=== PATIENT | male | born 1945 | race Asian ===

== ENCOUNTER 2018-02-24 16:31 | Emergency (ER) | payer BC ==
--- NOTE | 2018-02-24 18:02 | ER Document Report ---
ED General - General Chief Complaint: Skin Sore(s) Stated Complaint: BLISTERS Time Seen by Provider: 02/24/18 18:01 Notes: Patient is a 72-year-old male that presents to the emergency department for chief complaint of bulla formation. History provided by the patient via professional hr receptionist for [employer]. According to the patient he reports that in January 05, he had eaten some fried rice, and then that evening had itching on his head and back and arms, when he woke up he had bulla formation on his arms, he went to an urgent care and they prescribed a medication, and it improved, he thinks it may have been steroids. He thought this was may be an allergic reaction. He again was feeling itching last night, woke up and noted that his legs were having blister formation as well and itching, so they decided come to the emergency department to have this evaluated. He has not had any lesions in his mouth, denies having any sore throat or mouth pain. Denies having any shortness of breath or difficulty breathing. Denies any nausea, vomiting or abdominal pain. Past Medical History: Denies chronic medical conditions Past Surgical History: Reviewed and not pertinent to presenting illness Social History: Denies smoking history, or alcohol or drug use. Family History: Reviewed and noncontributory for presenting illness Allergies: Reviewed, see documented allergy list. REVIEW OF SYSTEMS: Unless otherwise stated in this report the patient's positive and negative responses for review of systems for constitutional, eyes, ENT, cardiovascular, respiratory, gastrointestinal, neurological, genitourinary, musculoskeletal, and integumentary systems and related systems to the presenting problem are either as stated in the HPI or were not pertinent or were negative for the symptoms and/or complaints related to the presenting medical problem. PHYSICAL EXAMINATION: Vital signs reviewed, nursing noted reviewed. GENERAL: Elderly male and in no acute distress. HEAD: Atraumatic, normocephalic. EYES: Eyes appear normal, extraocular movements intact, sclera anicteric, conjunctiva are normal. ENT: nares patent, oropharynx clear without exudates. Moist mucous membranes. No oral lesions, on the palate, or the vehicle mucosa NECK: Normal range of motion, supple without lymphadenopathy LUNGS: Breath sounds clear to auscultation bilaterally and equal. No wheezes rales or rhonchi. HEART: Regular rate and rhythm without murmurs ABDOMEN: Soft, nontender, normoactive bowel sounds. No rebound, guarding, or rigidity. No masses appreciated. EXTREMITIES: Nontender, good range of motion, trace bilateral pitting edema. NEUROLOGICAL: No focal neurological deficits. Moves all extremities spontaneously Motor and sensory grossly intact on exam. PSYCH: Normal mood, normal affect. SKIN: Warm, Dry, normal turgor, patient noted to have tense bulla noted anteriorly over both lower extremities, few are ruptured, also noted are some tense bulla in the upper extremities. Negative Nikolsky sign TRAVEL OUTSIDE OF THE [place] IN LAST 30 DAYS: No Past Medical History - Social History Smoking Status: Unknown if Ever Smoked Family History: Reviewed & Not Pertinent Patient has suicidal ideation: No Patient has homicidal ideation: No Renal/ Medical History: Denies: Hx Peritoneal Dialysis Physical Exam - Vital signs Vitals: Temp Pulse Resp BP Pulse Ox 98.3 F 60 16 117/66 98 02/24/18 16:41 02/24/18 16:41 02/24/18 16:41 02/24/18 16:41 02/24/18 16:41 Course - Re-evaluation Re-evalutation: Patient seen and examined vital signs reviewed. Laboratory data and imaging were ordered as appropriate for the patient's presenting symptoms and complaint, with consideration of any critical or life threatening conditions that may be associated with their obtained history and exam as noted above. Patient was treated with IV Solu-Medrol and doxycycline Results were reviewed when available and demonstrated no leukocytosis, normal ESR, slightly elevated CRP, normal renal function. The patient was re-evaluated and was stable Evaluation was most consistent with bullous pemphigoid, versus allergic reaction , will treat with prednisone therapy, and doxycycline for his open wounds, and have him follow-up. The patient is planning on going back to [place] at the end of this month, advised to follow-up, or return to the emergency department if symptoms returned or worsened. Results were discussed with the patient at this point, after careful consideration I feel that that patient can be discharged from the emergency department, the patient was educated treatments and reasons to return to the emergency department based on their presumed diagnosis as noted above, they were advised to followup with a primary care physician in 2-3 days. Patient was agreeable to plan of care. *Note is created using voice recognition software and may contain spelling, syntax or grammatical errors. Laboratory 02/24/18 02/24/18 18:40 18:40 WBC 4.7 RBC 4.34 L Hgb 13.8 Hct 40.6 MCV 94 MCH 31.7 MCHC 33.9 RDW 13.2 Plt Count 119 L Seg Neutrophils % 62.4 Lymphocytes % 20.7 Monocytes % 9.8 Eosinophils % 6.8 H Basophils % 0.3 Absolute Neutrophils 3.0 Absolute Lymphocytes 1.0 Absolute Monocytes 0.5 Absolute Eosinophils 0.3 Absolute Basophils 0.0 ESR 9 Sodium 139.9 Potassium 4.2 Chloride 106 Carbon Dioxide 27 Anion Gap 7 BUN 24 H Creatinine 0.60 Est GFR ( Amer) > 60 Est GFR (Non-Af Amer) > 60 Glucose 95 Calcium 9.0 Total Bilirubin 0.5 Direct Bilirubin 0.4 Neonat Total Bilirubin Not Reportable Neonat Direct Bilirubin Not Reportable Neonat Indirect Bili Not Reportable AST 37 ALT 34 Alkaline Phosphatase 71 Creatine Kinase 221 H C-Reactive Protein 15.4 H Total Protein 6.8 Albumin 4.2 Chest X-Ray 02/24/18 18:29 IMPRESSION: NO ACUTE RADIOGRAPHIC FINDING IN THE CHEST. - Vital Signs Vital signs: Temp Pulse Resp BP Pulse Ox 97.2 F 59 L 16 127/86 H 98 02/24/18 20:59 02/24/18 20:59 02/24/18 16:41 02/24/18 20:59 02/24/18 20:59 - Laboratory Result Diagrams: 02/24/18 18:40 02/24/18 18:40 Laboratory results interpreted by me: 02/24/18 02/24/18 18:40 18:40 RBC 4.34 L Plt Count 119 L Eosinophils % 6.8 H BUN 24 H Creatine Kinase 221 H C-Reactive Protein 15.4 H Discharge - Discharge Clinical Impression: Bullous pemphigoid Condition: Stable Disposition: HOME, SELF-CARE Instructions: Acute Urticaria ([facility]) Additional Instructions: Please return to the emergency department if you have any worsening, or concern of your symptoms. Please return to the emergency department if you develop chest pain, difficulty breathing, severe abdominal pain, or ongoing vomiting. Please follow-up with your primary care physician in 2-3 days and any other recommended physicians. If prescribed, take all medications as directed. If you have any questions or concerns do not hesitate to return the emergency department for evaluation. Monitor the blood pressure at home if he can, and if the blood pressure is getting too high or if he develops chest pain or headaches, return to the emergency department to be reevaluated. You can use a moisturizing cream to help with the itching, and take over-the- counter Benadryl 25 mg every 8 hours for itching. Take the steroid as directed, and the antibiotics. Prescriptions: Doxycycline Hyclate 100 mg PO BID #14 capsule Prednisone 10 mg PO ASDIR #75 tablet Referrals: SHAMEKA ANGEL PA-C [Primary Care Provider] - Follow up as needed Print Language: Mandarin
[2018-02-24] MEDS ORDERED: METHYLPREDNISOLONE INJ 125 MG/2 ML SDV IV ONE (18:29)
[2018-02-24 18:52] LABS: ABSOLUTE EOSINOPHILS # (AUTO) 0.3 10^3/uL (0.0-0.6); ABSOLUTE MONOCYTES (AUTO) 0.5 10^3/uL (0.1-1.4); BASOPHILS % (AUTO) 0.3 % (0-2); EOSINOPHILS % (AUTO) 6.8 % (0-6); HEMATOCRIT 40.6 % (37.9-51.0); HEMOGLOBIN 13.8 g/dL (13.5-17.0); LYMPHOCYTES % (AUTO) 20.7 % (13-45); MEAN CORPUSCULAR HEMOGLOBIN 31.7 pg (27.0-33.4); MEAN CORPUSCULAR HGB CONC 33.9 g/dL (32.0-36.0); MEAN CORPUSCULAR VOLUME 94 fl (80-97); MONOCYTES % (AUTO) 9.8 % (3-13); PLATELET COUNT 119 10^3/uL (150-450); RED BLOOD COUNT 4.34 10^6/uL (4.35-5.55); RED CELL DISTRIBUTION WIDTH 13.2 % (11.5-14.0); SEGMENTED NEUTROPHILS % (AUTO) 62.4 % (42-78); TOTAL CELLS COUNTED % (AUTO) 100 %; WHITE BLOOD COUNT 4.7 10^3/uL (4.0-10.5)
--- NOTE | 2018-02-24 19:03 | RADIOLOGY REPORT (SQ) ---
EXAM DESCRIPTION: CHEST 2 VIEWS COMPLETED DATE/TIME: 02/24/2018 6:50 pm REASON FOR STUDY: cough COMPARISON: None. EXAM PARAMETERS: NUMBER OF VIEWS: two views TECHNIQUE: Digital Frontal and Lateral radiographic views of the chest acquired. RADIATION DOSE: NA LIMITATIONS: none FINDINGS: LUNGS AND PLEURA: No opacities, masses or pneumothorax. No pleural effusion. MEDIASTINUM AND HILAR STRUCTURES: No masses or contour abnormalities. HEART AND VASCULAR STRUCTURES: Heart normal size. No evidence for failure. BONES: No acute findings. HARDWARE: None in the chest. OTHER: No other significant finding. IMPRESSION: NO ACUTE RADIOGRAPHIC FINDING IN THE CHEST. TECHNICAL DOCUMENTATION: JOB ID: [id number] [employer]- All Rights Reserved Reading location - IP/workstation name: [email or web address]
[2018-02-24 19:11] LABS: ALANINE AMINOTRANSFERASE 34 U/L (21-72); ALBUMIN 4.2 g/dL (3.5-5.0); ALKALINE PHOSPHATASE 71 U/L (38-126); ANION GAP 7 (5-19); ASPARTATE AMINO TRANSFERASE 37 U/L (17-59); BILIRUBIN,DIRECT 0.4 mg/dL (0.0-0.4); BILIRUBIN,TOTAL 0.5 mg/dL (0.2-1.3); BLOOD UREA NITROGEN 24 mg/dL (7-20); C-REACTIVE PROTEIN 15.4 mg/L (<10.0); CARBON DIOXIDE 27 mmol/L (22-30); CHLORIDE 106 mmol/L (98-107); CREATINE KINASE 221 U/L (55-170); GLUCOSE 95 mg/dL (75-110); POTASSIUM 4.2 mmol/L (3.6-5.0); SODIUM 139.9 mmol/L (137-145); TOTAL PROTEIN 6.8 g/dL (6.3-8.2)
[2018-02-24 19:28] LABS: ERYTHROCYTE SEDIMENTATION RATE 9 mm/hr (0-20)
[2018-02-24] MEDS ORDERED: DOXYCYCLINE HYCLATE INJ 100 MG VIAL IV ONE (19:37)
[2018-02-24] MEDS ORDERED: DIPHENHYDRAMINE HCL 25 MG CAPSULE PO ONE (19:48)
[2018-02-24 21:07] VITALS: BP 127/86
== END 2018-02-24 21:07 | disposition home or self-care (01) ==
LOC: ER 16:31
DX: L12.0 Bullous pemphigoid (principal)
CPT/HCPCS: 99284; 96375; 96365; 36415; 82550; 85025; 85652; 86140; 80053; 71046; J3490; J2930